=== PATIENT | female | born 1975 | race Caucasian/White ===

== ENCOUNTER → 2019-09-16 | Emergency (ER) | payer OTHER ==
[~2019-09-16] VITALS: Ht 170.2 cm; Wt 81.6 kg
[~2019-09-16] MED LIST: CRESTOR10 MG
== END | disposition left against medical advice (07) ==
LOC: ER 14:11
DX: M94.0 Chondrocostal junction syndrome [Tietze] (principal)

== ENCOUNTER 2023-02-24 08:37 | Outpatient (CLI) | payer OTHER | END 2023-02-24 08:55 | disposition home or self-care (01) | LOC: RAD 08:37 | PROVIDERS: ATTEND Orthopaedic Surgery | DX: M25.562 Pain in left knee (principal) ==